=== PATIENT | female | born 1950 | race Caucasian/White ===

== ENCOUNTER → 2017-10-22 | Outpatient (CLI) | payer OTHER | END | disposition home or self-care (01) | LOC: LAB SHORT 11:03 → LAB 11:03 | DX: L57.0 Actinic keratosis (principal) | CPT/HCPCS: 88305 ==

== ENCOUNTER → 2018-08-14 | Outpatient (CLI) | payer OTHER | END | disposition home or self-care (01) | LOC: LAB SHORT 08:01 → PLD 08:01 | DX: L57.0 Actinic keratosis (principal) | CPT/HCPCS: 88305 ==

== ENCOUNTER → 2019-08-04 | Outpatient (CLI) | payer OTHER ==
[2019-08-05 15:09] LABS: HPV 16 Negative (Negative); HPV 18 Negative (Negative); HPV OTHER HR TYPES Negative (Negative)
== END | disposition home or self-care (01) ==
LOC: LAB SHORT 08:00 → LAB 08:00
PROVIDERS: Family Medicine
DX: Z12.4 Encounter for screening for malignant neoplasm of cervix (principal)
CPT/HCPCS: 87624; G0123

== ENCOUNTER 2023-01-29 08:16 | Day surgery (SDC) | payer OTHER ==
[~2023-01-29] VITALS: Ht 157.5 cm; Wt 64.0 kg
--- NOTE | 2023-01-29 08:56 | NUR ---
01/29/23 0856 Saida Huffman TETRACAINE PLACED IN LEFT EYE AT 0848. PLEDGET PLACED IN LEFT EYE AT 0849 PATIENT TOLERATED WELL.
[2023-01-29 10:08] VITALS: BP 107/69
--- NOTE | 2023-01-29 10:08 | NUR ---
01/29/23 1008 Tai Gonzalez IV REMOVED INTACT. SITE WNL.
== END 2023-01-29 10:04 | disposition home or self-care (01) ==
LOC: ORSCSDS 08:16
PROVIDERS: Student in an Organized Health Care Education/Training Program
PROC: 08RK3JZ Replacement of Left Lens with Synthetic Substitute, Percutaneous Approach (ICD-10-PCS; principal; 2023-01-29 09:30)
DX: H25.12 Age-related nuclear cataract, left eye (principal); Z96.1 Presence of intraocular lens; Z79.899 Other long term (current) drug therapy
CPT/HCPCS: J2250; J7040; V2632